=== PATIENT | male | born 1990 | race Caucasian/White ===

== ENCOUNTER → 2019-08-26 | Outpatient (REF) | payer OTHER, MEDICAID ==
[~2019-08-26] MED LIST: TRIL1TAB OR; no meds
[2019-08-26 14:42] LABS: AMORPHOUS SEDIMENT LARGE (NEGATIVE); APPEARANCE, URINE TURBID (CLEAR); BACTERIA, URINE AUTO NEGATIVE (NEGATIVE); BILIRUBIN, URINE AUTO NEGATIVE (NEGATIVE); BLOOD, URINE BLOOD NEGATIVE (NEGATIVE); COLOR, URINE YELLOW (YELLOW); GLUCOSE, URINE (UA) AUTO NEGATIVE (NEGATIVE); KETONE, URINE AUTO NEGATIVE (NEGATIVE); LEUKOCYTE ESTERASE, URINE AUTO NEGATIVE (NEGATIVE); MUCUS, URINE LARGE (NEGATIVE); NITRITE, URINE AUTO NEGATIVE (NEGATIVE); PROTEIN, URINE AUTO NEGATIVE (NEGATIVE); RBC, URINE AUTO 0 /HPF (0-3); SPECIFIC GRAVITY URINE AUTO 1.028 (1.002-1.035); SQUAMOUS EPITHELIAL CELL UR AU 0 /HPF (0-6); WBC, URINE AUTO 0 /HPF (0-3)
[2019-08-26 14:47] LABS: BASO % 0.5 % (0.0-1.0); EOS # 0.2 10^3/uL (0.0-0.5); HEMATOCRIT 48.8 % (42.0-52.0); LYMPH # 2.6 10^3/uL (1.5-5.0); LYMPH % 34.3 % (24.0-44.0); MEAN CORPUSCULAR HEMOGLOBIN 27.4 pg (27.0-33.0); MEAN CORPUSCULAR HGB CONC 32.8 g/dl (32.0-36.5); MEAN CORPUSCULAR VOLUME 83.6 fl (80.0-96.0); MONO # 0.7 10^3/uL (0.0-0.8); MONO % 9.3 % (0.0-5.0); NEUTROPHILS # 4.1 10^3/uL (1.5-8.5); NEUTROPHILS % 53.8 % (36.0-66.0); PLATELET COUNT, AUTOMATED 306 10^3/uL (150-450); RED BLOOD COUNT 5.84 10^6/uL (4.30-6.10); WHITE BLOOD COUNT 7.6 10^3/uL (4.0-10.0)
[2019-08-26 15:02] LABS: ALBUMIN 4.1 GM/DL (3.2-5.2); ALT/SGPT 50 U/L (12-78); BILIRUBIN,TOTAL 0.7 MG/DL (0.2-1.0); BLOOD UREA NITROGEN 11 MG/DL (7-18); CALCIUM LEVEL 9.3 MG/DL (8.5-10.1); CARBON DIOXIDE LEVEL 29 MEQ/L (21-32); CHLORIDE LEVEL 107 MEQ/L (98-107); CHOLESTEROL LEVEL 156 MG/DL (<200); FREE T4 1.34 NG/DL (0.76-1.46); GLOMERULAR FILTRATION RATE > 60.0 (>60); GLUCOSE, FASTING 91 MG/DL (70-100); HDL CHOLESTEROL 30 MG/DL (>40); LDL CHOLESTEROL 89 MG/DL (<100); NON-HDL-C 126 MG/DL; SODIUM LEVEL 138 MEQ/L (136-145); TOTAL 25(OH) VITAMIN D 18.2 NG/ML (30.0-100.0); TOTAL PROTEIN 6.8 GM/DL (6.4-8.2); TRIGLYCERIDES LEVEL 184 MG/DL (<150)
[2019-08-26 15:16] LABS: HEMOGLOBIN A1c 5.4 %
== END ==
LOC: M LAB REF 12:15
PROVIDERS: ATTEND Nurse Practitioner Family
DX: Z00.01 Encounter for general adult medical examination with abnormal findings (principal); Z13.9 Encounter for screening, unspecified; F17.200 Nicotine dependence, unspecified, uncomplicated

== ENCOUNTER → 2019-12-04 | Outpatient (REF) | payer OTHER, MEDICAID ==
[2019-12-04 16:59] LABS: CHOLESTEROL RISK RATIO 3.891 (<5)
== END ==
LOC: M LAB REF 15:03
PROVIDERS: ATTEND Nurse Practitioner Family
DX: E78.6 Lipoprotein deficiency (principal); F17.200 Nicotine dependence, unspecified, uncomplicated

== ENCOUNTER → 2020-05-13 | Outpatient (CLI) | payer SELFPAY | LOC: M LABSMTC 11:22 | PROVIDERS: ATTEND Pediatrics | DX: Z20.822 Contact with and (suspected) exposure to COVID-19 (principal) ==